=== PATIENT | male | born 1995 | race Caucasian/White ===

== ENCOUNTER 2017-01-27 11:46 | Emergency (ER) | payer OTHER ==
--- NOTE | 2017-01-27 14:15 | Emergency Department Record ---
History of Present Illness - General Chief Complaint: Abdominal Pain Stated Complaint: ABD PAIN Time Seen by Provider: 01/27/17 14:14 Source: Patient Mode of Arrival: Ambulatory Limitations: No limitations - History of Present Illness Initial Comments: The patient is here due to a progressively increasing RLQ AP for about 10 hours today. He has had mild nausea with it but no vomiting. The patient denies any dysuria or fever or anorexia and he has been eating normally. Lifting and bending do not affect the pain. MD Complaint: Abdominal pain Onset/Timin -: Hour(s) Location: RLQ Radiation: None Migration to: No migration Severity: Mild Quality: Dull Consistency: Intermittent Improves With: Nothing Worsens With: Nothing Associated Symptoms: Nausea, Other - Related Data Home Medications Medication Instructions Recorded Confirmed Last Taken Omeprazole [Prilosec] 20 mg PO DAILY 01/27/17 01/27/17 01/26/17 Allergies Allergy/AdvReac Type Severity Reaction Status Date / Time Penicillins Allergy Mild HIVES Verified 01/27/17 13:18 Travel Screening - Travel/Exposure Within Last 30 Days Have you traveled within the last 30 days?: No Review of Systems Constitutional: Denies: Chills, Fever, Malaise Eyes: Denies: Eye discharge ENT: Denies: Congestion Respiratory: Denies: Cough, Dyspnea Past Medical History - SOCIAL HISTORY Smoking Status: Never smoker Alcohol Use: None Drug Use: None - RESPIRATORY Hx Respiratory Disorders: Yes Hx Asthma: Yes (as a kid) - CARDIOVASCULAR Hx Cardio Disorders: No - NEURO Hx Neuro Disorders: No - GI Hx GI Disorders: Yes Hx Reflux: Yes - Hx Genitourinary Disorders: No - ENDOCRINE Hx Endocrine Disorders: No - MUSCULOSKELETAL Hx Musculoskeletal Disorders: No - PSYCH Hx Psych Problems: No - HEMATOLOGY/ONCOLOGY Hx Hematology/Oncology Disorders: No Family Medical History Any Significant Family History?: No Physical Exam - General General Appearance: Alert, Oriented x3, Cooperative, No acute distress - Head Head exam: Atraumatic, Normocephalic, Normal inspection - Eye Eye exam: Normal appearance, PERRL - ENT Throat exam: Normal inspection. negative: Tonsillar erythema, Tonsillar exudate - Neck Neck exam: Normal inspection, Full ROM. negative: Tenderness - Respiratory Respiratory exam: Normal lung sounds bilaterally. negative: Respiratory distress - Cardiovascular Cardiovascular Exam: Regular rate, Normal rhythm, Normal heart sounds - GI/Abdominal GI/Abdominal exam: Soft, Tenderness (There is mild RLQ tenderness with no guarding or rebound.). negative: Rebound - exam: Circumcision. negative: Scrotal swelling, Testicular tenderness - Extremities Extremities exam: Normal inspection, Full ROM, Normal capillary refill. negative: Tenderness Course Vital Signs 01/27/17 13:11 Temperature 98.2 F Pulse Rate 67 Respiratory 18 Rate Blood Pressure 116/85 Pulse Ox 99 - Reevaluation(s) Reevaluation #1: The patient is doing much better. He denies any pain at this time and is very hungry. On exam his abdomen is very soft and nontender in all 4 quads. I explained to him that the labs and CT are all WNL. He is to proceed home and to return to the ER if not better in the morning or sooner if worse. 01/27/17 15:38 Medical Decision Making - Data Complexity MDM Data: Labs Ordered and/or Reviewed, X-Ray Ordered and/or Reviewed (Abd CT: Neg.) - Lab Data Result diagrams: 01/27/17 14:26 01/27/17 14:26 Disposition Disposition: Discharge Clinical Impression: Abdominal pain in male Disposition: Home, Self-Care Condition: (1) Good Instructions: Abdominal Pain (ED) Additional Instructions: Please use Tylenol or Motrin for pain. Please drink plenty of fluids and rest today. Return to the ER in the morning for any persistent or increasing AP, or sooner for any worsening pain, fever, or vomiting. Forms: Patient Portal Access Time of Disposition: 15:37
[2017-01-27] MEDS ORDERED: ONDANSETRON HCL IV 4 MG/2 ML VIAL IV ONE (14:22)
[2017-01-27] MEDS ORDERED: 0.9 % SODIUM CHLORIDE 1,000 ML BAG IV ONE (14:22)
[2017-01-27 14:37] LABS: URINE APPEARANCE SL CLOUDY; URINE BILIRUBIN NEGATIVE (NEGATIVE); URINE BLOOD NEGATIVE (NEGATIVE); URINE COLOR YELLOW; URINE GLUCOSE (UA) NEGATIVE (NEGATIVE); URINE KETONE NEGATIVE (NEGATIVE); URINE LEUKOCYTE ESTERASE NEGATIVE (NEGATIVE); URINE NITRITE NEGATIVE (NEGATIVE); URINE PROTEIN NEGATIVE (NEGATIVE); URINE UROBILINOGEN 0.2 E.U./dL (0.20 - 1.00)
[2017-01-27 14:37] LABS: BASO % 0.2 % (0-6); EOS % 1.2 % (0-6); GRAN % 57.7 % (47-80); HEMATOCRIT 44.2 % (42.0-52.0); HEMOGLOBIN 15.5 gm/dl (14.0-18.0); LYMPH % 29.7 % (16-45); MEAN CELL VOLUME 91.1 fl (81-97); MEAN CORPUSCULAR HGB CONC 35.1 g/dl (32-36); MEAN PLATELET VOLUME 10.9 fl (7.4-10.4); MONO % 11.2 % (0-9); PLATELET COUNT 261 K/uL (130-400); RED BLOOD COUNT 4.85 M/uL (4.40-5.70); RED CELL DISTRIBUTION WIDTH 12.2 % (11.5-14.5); WHITE BLOOD COUNT W/O DIFF 8.3 K/uL (4.2-12.2)
[2017-01-27 14:49] LABS: ALKALINE PHOSPHATASE 75 U/L (38-126); ALT/SGPT 36 U/L (21-72); ANION GAP 13.6 (7-16); AST/SGOT 29 U/L (17-59); BILIRUBIN,TOTAL 0.49 mg/dL (0.2-1.3); BLOOD UREA NITROGEN 12 mg/dL (9-20); CARBON DIOXIDE 25.4 mmol/L (22-30); CREATININE 0.8 mg/dL (0.66-1.25); EST GLOMERULAR FILTRATION RATE > 60 ml/min; GLUCOSE,RANDOM 81 mg/dL (70-110); LIPASE 102 U/L (23-300); TOTAL PROTEIN 8.3 gm/dL (6.3-8.2)
[2017-01-27] MEDS ORDERED: KETOROLAC 30 MG/ML VIAL IVP ONE (14:56)
--- NOTE | 2017-02-02 13:30 | CT SCAN REPORT ---
DATE: 01/27/2017. EXAM: CT SCAN OF THE ABDOMEN AND PELVIS WITHOUT CONTRAST. HISTORY: The patient has generalized abdominal pain and shortness of breath. TECHNIQUE: Serial axial CT scan of the abdomen and pelvis was performed at 3.75 mm intervals from the dome of the diaphragm down to the pubic symphysis without the use of intravenous or oral contrast. No comparison studies are available. FINDINGS: The lung windows and the lung bases demonstrate no CT evidence of a focal infiltrate or pleural effusion. The visualized heart size and contour is within normal limits. The liver, spleen, bilateral adrenal glands, pancreas, and gallbladder are unremarkable. There is no CT evidence of hydronephrosis or hydroureter. Bilateral nonobstructive renal calculi are noted. The largest renal calculus within the right kidney is at its superior pole and measures approximately 3.0 mm. The largest calculus within the left kidney is located within its mid pole and measures less than 2.0 mm. The contour and caliber of the abdominal aorta is within normal limits. There is no CT evidence of retroperitoneal, pelvic, or inguinal lymphadenopathy. The bowel gas pattern is nonspecific and nonobstructive. Occasional colonic diverticula are noted without CT evidence of diverticulitis. There is no CT evidence of free intraperitoneal fluid or free intraperitoneal air. The appendix is clearly visualized and is located within the retrocecal region. There is no CT evidence of appendicitis. The bone windows demonstrate no CT evidence of a fracture or dislocation of the visualized osseus structures of the abdomen or pelvis. IMPRESSION: NONOBSTRUCTIVE BILATERAL RENAL CALCULI ARE NOTED DISCUSSED ABOVE. THERE IS NO CT EVIDENCE OF AN ACUTE INTRA-ABDOMINAL PROCESS. JOB NUMBER: [id number] [facility]
== END 2017-01-27 15:52 | disposition home or self-care (01) ==
LOC: ER 11:46
DX: R10.31 Right lower quadrant pain (principal); R11.0 Nausea
CPT/HCPCS: 99284 ×2; 96374; 96375; 83690; 85025; 80076; 80048; 81003; 74176; J1885; J2405; J7030